=== PATIENT | female | born 1995 | race Caucasian/White ===

== ENCOUNTER 2016-11-25 12:35 | Inpatient (IN) ==
[2016-11-25] MEDS ORDERED: AMBIEN PO PRN (20:24)
[2016-11-25] MEDS ORDERED: KEFZOL 1 GM/D5W 1 GM/50 ML IVPB IV PRN (20:24)
[2016-11-25] MEDS ORDERED: ZOFRAN IV PRN (20:24)
[2016-11-25] MEDS ORDERED: STADOL IV PRN ×3 (20:24)
[2016-11-25] MEDS ORDERED: TYLENOL PO PRN (20:24)
[2016-11-25] MEDS ORDERED: PEPCID IV PRN (20:24)
[2016-11-25] MEDS ORDERED: BRETHINE SUBQ PRN (20:24)
[2016-11-25] MEDS ORDERED: PITOCIN 30 UNITS/LR 30 UNITS/500 ML IV.SOLN IV SCH (20:24)
[2016-11-25] MEDS: LR 1,000 ML IV ONE ×2 (21:45→23:26)
[2016-11-25] MEDS ORDERED: AMPICILLIN 2 GM/NS 2 GM/100 ML IVPB IV ONE (22:00)
[2016-11-25] MEDS ORDERED: CYTOTEC PO ONE (22:00)
[2016-11-25 22:35] LABS: URINE SOURCE VOIDED
[2016-11-25 22:35] LABS: MANUAL DIFF NEEDED? NO
[2016-11-25 22:40] LABS: BASO% 0.2 % (0.0-0.8); EOS# 0.18 X1000 (0.0-0.7); EOS% 1.2 % (0.0-10.0); HEMATOCRIT 37.3 % (37.0-47.0); HEMOGLOBIN 12.9 g/dL (12.0-16.0); IMM GRAN# 0.08 X1000 (0.0-0.04); IMM GRAN% 0.5 % (0.0-0.5); LYMPH# 3.26 X1000 (1.2-3.4); LYMPH% 21.3 % (20.5-51.1); MCH 30.1 PG (27-31); MCHC 34.6 g/dL (33-37); MCV 86.9 FL (81-99); MONO# 0.83 X1000 (0.11-0.59); MONO% 5.4 % (1.7-9.3); MPV 10.6 FL (7.4-10.4); NEUT% 71.4 % (42.2-75.2); PLT 345 X1000 (130-400); RBC 4.29 XMIL (4.2-5.4)
[2016-11-25 22:43] LABS: UR AMPHETAMINES QUAL NONE DETECTED (NONE DETECT); UR BARBITUATES QUAL NONE DETECTED (NONE DETECT); UR BENZODIAZEPIN QUAL NONE DETECTED (NONE DETECT); UR CANNABINOIDS QUAL NONE DETECTED (NONE DETECT); UR COCAINE QUAL NONE DETECTED (NONE DETECT); UR MDMA QUAL NONE DETECTED (NONE DETECT); UR METHADONE QUAL NONE DETECTED (NONE DETECT); UR METHAMPHETAMINE QUAL NONE DETECTED (NONE DETECT); UR OPIATES QUAL NONE DETECTED (NONE DETECT); UR OXYCODONE QUAL NONE DETECTED (NONE DETECT); UR PCP QUAL NONE DETECTED (NONE DETECT); UR TCA QUAL NONE DETECTED (NONE DETECT)
[2016-11-25 22:54] LABS: PROTEIN CREAT RATIO 0.4; UR CREAT RANDOM 144.4 mg/dL (11-20); UR PROT RANDOM 51.1 mg/dL
[2016-11-25 23:08] LABS: BILIRUBIN URINE NEGATIVE (NEGATIVE); BLOOD URINE NEGATIVE (NEGATIVE); CLARITY CLEAR (CLEAR); COLOR YELLOW; GLUCOSE URINE NEGATIVE (NEGATIVE); LEUKOCYTES URINE NEGATIVE (NEGATIVE); NITRITE URINE NEGATIVE (NEGATIVE); PH URINE 6.5; PROTEIN URINE 1+(30 mg/dL) mg/dL (NEGATIVE); UROBILINOGEN URINE NORMAL
[2016-11-25] MEDS ORDERED: FENTANYL-BUPIV-NS 2 MCG-0.1% 200 ML EPIDURAL PRN (23:10)
[2016-11-25] MEDS ORDERED: MARCAINE 0.25% PF INJ PRN (23:11)
[2016-11-25 23:12] LABS: AGAP 16; ALBUMIN 3.4 g/dL (3.5-5.0); ALKALINE PHOSPHATASE 159 U/L (32-104); BUN 8 mg/dL (8-22); CALCIUM 9.5 mg/dL (8.8-10.2); CHLORIDE 102 mmol/L (98-107); COSMO 267; GOT 16 U/L (10-30); GPT 15 U/L (10-36); POTASSIUM 4.1 mmol/L (3.5-5.1); SODIUM 135 mmol/L (136-145); TCO2 17 mmol/L (25-35); TOTAL BILIRUBIN < 0.15 mg/dL (0.20-1.00); TOTAL PROTEIN 6.4 g/dL (6.3-8.3); URIC ACID 5.2 mg/dL (2.4-5.7)
[2016-11-26] MEDS: AMPICILLIN 1 GM/NS 1 GM/50 ML IVPB IV SCH ×5 (02:00→17:51)
[2016-11-26] MEDS ORDERED: CYTOTEC PO SCH (02:00)
[2016-11-26] MEDS: LR 1,000 ML IV ONE (07:25)
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
[2016-11-26] MEDS ORDERED: LR 1,000 ML IV SCH (08:00)
[2016-11-26 11:04] LABS: LDH 153 U/L (135-214)
[2016-11-26] MEDS ORDERED: XYLOCAINE-MPF 1% INJ ONE ×2 (11:55→16:45)
[2016-11-26] MEDS ORDERED: TRANDATE PO ONE (12:58)
[2016-11-26] MEDS ORDERED: MARCAINE 0.25% PF INJ ONE (16:34)
[2016-11-26] MEDS ORDERED: XYLOCAINE 1% INJ ONE (16:36)
[2016-11-26] MEDS ORDERED: MINERAL OIL TOP ONE (16:37)
[2016-11-26] MEDS ORDERED: NAROPIN 0.2% ONE (17:08)
[2016-11-26] MEDS ORDERED: NAROPIN 0.2% EPIDURAL PRN (17:13)
[2016-11-26] MEDS ORDERED: XYLOCAINE-MPF 2% ONE ×2 (17:50→17:51)
[2016-11-26] MEDS ORDERED: XYLOCAINE-MPF 2% INJ ONE (17:53)
[2016-11-26] MEDS ORDERED: BENADRYL IV PRN (19:33)
[2016-11-26] MEDS ORDERED: PITOCIN 20 UNITS/LR 20 UNITS/1,000 ML IV.SOLN IV SCH (19:33)
[2016-11-26] MEDS ORDERED: HYDROXYZINE IM PRN (19:33)
[2016-11-26] MEDS ORDERED: ZANTAC PO PRN (19:33)
[2016-11-26] MEDS ORDERED: PITOCIN 30 UNITS/LR 30 UNITS/500 ML IV.SOLN IV ONE (19:33)
[2016-11-26] MEDS ORDERED: MINERAL OIL PO PRN (19:33)
[2016-11-26] MEDS ORDERED: BENADRYL PO PRN (19:33)
[2016-11-26] MEDS ORDERED: PITOCIN IM PRN (19:33)
[2016-11-26] MEDS ORDERED: XYLOCAINE-MPF 1% INJ PRN (19:33)
[2016-11-26] MEDS ORDERED: CYTOTEC PO PRN (19:33)
[2016-11-26] MEDS ORDERED: HYDROXYZINE PO PRN (19:33)
[2016-11-26] MEDS ORDERED: PERI MEDS (DERMOPLAST/NUPERCAINAL/TUCKS) MISC PRN (19:33)
[2016-11-26] MEDS ORDERED: NORCO-5 PO PRN (19:33)
[2016-11-26] MEDS ORDERED: BOOSTRIX VACCINE IM ONE (19:33)
[2016-11-26] MEDS ORDERED: M-M-R II VACCINE SUBQ ONE (19:33)
[2016-11-26] MEDS ORDERED: AMBIEN PO PRN (19:33)
[2016-11-26] MEDS: MUCINEX PO SCH (20:35)
[2016-11-26] MEDS: PERICOLACE PO SCH (20:35)
[2016-11-27] MEDS: MOTRIN PO PRN (00:49)
[2016-11-27] MEDS: NORCO-10 PO PRN ×3 (00:49→14:03)
--- NOTE | 2016-11-27 02:46 | OPERATIVE NOTE ---
PROCEDURE DATE: 11/26/2016 PREPROCEDURE DIAGNOSES: 1. G1 at 39 weeks and 3 days. 2. Gestational hypertension. POSTPROCEDURE DIAGNOSES: 1. G1, P1, status post spontaneous vaginal delivery. 2. Gestational hypertension. DESCRIPTION OF PROCEDURE: The patient was admitted on the evening of 2016 for scheduled induction of labor. She had been seen in the office earlier that day, and was noted to have elevated blood pressures to 160s over 100s. She was asymptomatic, and was 2 cm dilated. She received 2 doses of Cytotec overnight, and was given ampicillin for GBS prophylaxis. In the morning, she was started on Pitocin for augmentation. She progressed from 4 cm around 7 o'clock in the morning, eventually to complete around 5:45 p.m., and then she pushed and had a controlled vaginal delivery of a female infant in the left OA position, with delivery through nuchal cord x1 that was loose. The baby was then bulb suctioned and placed on mother's abdomen. The cord was clamped and cut. Cord blood was obtained, and then the placenta was then gently massaged from the uterus. The perineum was inspected for lacerations, and she was noted to have a right first- degree labial and small first-degree vaginal that was repaired with 3 interrupted stitches of 2-0 Polysorb, with excellent hemostasis. Fundus was firm after delivery. Estimated blood loss of less than 300 mL. Baby girl was born at 18:48, with Apgars of 9 at one minute, 10 at five minutes. Baby weighed 6 pounds 8 ounces. All sponge, lap, and needle counts were correct. Patient will be monitored in Labor and Delivery for her blood pressures, as she did have some severe range pressures earlier today, requiring 200 mg of p.o. labetalol, but did respond well. However, some of this is felt to be related to pain, so we will monitor her closely. cc: MD ENMANUEL Deal
[2016-11-27 07:08] LABS: HEMATOCRIT 33.2 % (37.0-47.0); HEMOGLOBIN 11.3 g/dL (12.0-16.0); MCV 88.1 FL (81-99); MPV 10.6 FL (7.4-10.4); RBC 3.77 XMIL (4.2-5.4)
[2016-11-27] MEDS: MUCINEX PO SCH ×3 (09:29→21:10)
[2016-11-27] MEDS ORDERED: TRANDATE PO ONE ×2 (11:21→17:00)
--- NOTE | 2016-11-27 11:41 | PROGRESS NOTE ---
DATE: 11/27/2016 SUBJECTIVE: She is day 1. Ms. Parada has no complaints this morning. She is tolerating p.o., ambulated and voided. PHYSICAL EXAMINATION: Vital Signs: Blood pressure is slightly elevated. She is 150s/90s, 140s/80s. Normal pulse, respiration, and temperature. Neck: Supple. Lungs: Clear. Heart: Regular sinus rhythm. Abdomen: Distended. The uterus is firm and nontender. Extremities: There is +2 lower extremity edema. LABORATORY DATA: Hemoglobin and hematocrit of 11 and 33, with platelets of 267,000. Chemistry did not reveal any elevated LFTs. Urine +1 protein. Toxicology screen was negative. RPR nonreactive. PLAN: We will continue current orders. We will add labetalol 200 once a day to see how that impacts her blood pressure. cc: MD Malia Hernandez MD
[2016-11-27] MEDS: PERICOLACE PO SCH (20:40)
[2016-11-28] MEDS: NORCO-10 PO PRN (05:37)
[2016-11-28] MEDS: MOTRIN PO PRN (05:38)
[2016-11-28] MEDS: MUCINEX PO SCH (09:08)
[2016-11-28 09:23] VITALS: BP 155/87
== END 2016-11-28 13:35 | disposition home or self-care (01) ==
LOC: P.LD 20:22 → P.WC 11-26 23:28
PROVIDERS: ADMIT Obstetrics & Gynecology; ATTEND Obstetrics & Gynecology

== ENCOUNTER 2016-12-02 16:38 | Inpatient (IN) ==
[2016-12-02 17:20] LABS: MANUAL DIFF NEEDED? NO
--- NOTE | 2016-12-02 17:23 | PROVIDER DOCUMENTATION ---
This chart was entered by Stephanie Camacho Scribe, acting as scribe for Max Lawson MD. HPI-General Adult - General Chief Complaint: Complaint Stated Complaint: SOB Time Seen by Provider: 12/02/16 16:51 Source: patient Allergies/Adverse Reactions: Patient Allergies Allergy/AdvReac Type Severity Reaction Status Date / Time No Known Allergies Allergy Verified 11/26/16 08:02 Home Medications: Home Medication List Medication Instructions Recorded Confirmed Last Taken Type Hydroxyzine Pamoate [Vistaril] 1 cap PO Q6H PRN PRN 11/25/16 12/02/16 12/01/16 21:00 History 1 TAB Hydrocodone/APAP 5 mg/325 mg 1 each PO Q3-4H PRN PRN #30 tablet 11/28/1612/02/16 16:00 Rx [[place]-5] 1 TAB Ibuprofen [Motrin] 800 mg PO Q8H PRN PRN #30 tablet 11/28/16 12/02/16 12/02/16 16:00 Rx 1 TAB Labetalol [Trandate] 100 mg PO BID #14 tablet 11/28/16 12/02/16 12/02/16 05:00 Rx 1 TAB Azithromycin 250 mg PO DIRECTED 12/02/16 12/02/16 12/02/16 07:00 History 1 TAB - History of Present Illness -Gen Adult Nature of Presenting Problems: 21 yo F presents to the ER with complaint of SOB, swelling, cough, chest tightness and high blood pressure. Pt had a vaginal delivery x7 days ago, states she was not diagnosed with preclamsia but had similar symptoms. Gained a total of 40 pounds during . States she saw Dr. Jimenez yesterday and had similar symptoms, was prescribed a z-pack. Also complains of back pain from where the epidural "slipped out" during delivery. Associated Symptoms: reports: chest pain, cough, shortness of breath. denies: nausea, vomiting Review of Systems - Adult - REVIEW OF SYSTEMS - ADULT Constitutional: denies: chills, fever Eyes: reports: no symptoms reported Ears, Nose, Mouth & Throat: reports: no symptoms reported Cardiovascular: reports: chest pain, edema. denies: palpitations Respiratory: reports: cough, shortness of breath Gastrointestinal: denies: diarrhea, nausea, vomiting Genitourinary: reports: no symptoms reported Musculoskeletal: reports: back pain, joint pain Integumentary: reports: no symptoms reported Neurological: reports: no symptoms reported Psychiatric: reports: no symptoms reported Endocrine: reports: no symptoms reported Hematologic/Lymphatic: reports: no symptoms reported Allergic/Immunologic: reports: no symptoms reported All Other Systems: Reviewed and Negative Past History - Adult - PAST MEDICAL HISTORY-ADULT Review of Records: reports: Nursing Assessment Review, Medications Reviewed Neurological: reports: Seizures/Epilepsy Additional History: Chronic bilat ear infx - PRIOR SURGERIES/PROCEDURES Surgical/Procedure History: reports: none - IMMUNIZATION STATUS Childhood Immunizations: See Nurse Assessment Flu Vaccine: See Nurse Assessment Physical Exam-General - PHYSICAL EXAM-ADULT Initial Vital Signs Reviewed: Yes - CONSTITUTIONAL General Appearance: alert, no apparent distress - EYES Eyes: PERRL/EOMI, pink conjunctivae - HEAD, EARS, NOSE, MOUTH & THROAT HENMT: normocephalic/atraumatic, normal ENT inspection - NECK Neck: supple, normal inspection - RESPIRATORY Respiratory: no respiratory distress, no accessory muscle use - CARDIOVASCULAR Cardiovascular: normal peripheral pulses, regular rate, rhythm - GASTROINTESTINAL (ABDOMEN) Abdominal Exam: normal bowel sounds, non tender, soft - MUSCULOSKELETAL Back Exam: no CVA tenderness, no vertebral tenderness Extremity: normal gait, normal inspection - SKIN Integumentary: normal color, warm/dry, swelling (+2 pitting edema to lower extremities) - NEUROLOGIC Neurologic: grossly normal, no motor/sensory deficits - PSYCHIATRIC Psych/Mental Status: normal mood/affect, normal thought content, normal thought process, oriented x 3 Progress - PLAN OF CARE/RESULTS Progress/Plan/Lab Results: Vital Signs - 8 hr 12/02/16 16:39 Temperature 99.1 F Pulse Rate 91 H Respiratory Rate 22 Blood Pressure 181/107 O2 Sat by Pulse Oximetry 91 L Orders Category Date Time Status CHEST-2 VIEWS [RAD] Stat Exams 12/02/16 16:42 Taken CBC WITH DIFF [HEME] Stat Lab 12/02/16 16:42 Ordered COMPREHENSIVE METABOLIC PANEL [CHEM] Stat Lab 12/02/16 16:42 Ordered PRO B-NATRIURETIC PEPTIDE Stat Lab 12/02/16 16:42 Ordered EKG [EKG] Stat Ther 12/02/16 16:42 Ordered Result Diagrams: 12/02/16 17:07 12/02/16 17:07 - EKG 1 Time of EKG reading by physician:: 17:42 EKG Read and Signed by:: Max Lawson EKG Interpretation (*Must complete 3 of following elements*): Normal Rate: 107 Rhythm: sinus tach [place]: normal QRS: normal AL Interval: normal ST Wave: normal - CONSULTS/PCP/HOSPITALIST Notification #1 *Consult/PCP/Hospitalist*: Admit to Dr. Tavarez - CHANGE OF SHIFT REPORT (ED Provider) Report Given and Care Transferred to:: Dr. Mckeon Time of Transfer: 18:00 Items Pending: Labs, CT/MRI Results, Ultrasound Results, Physician Consult/ Arrival, Other (All labs and image studies are pending.) Departure - Departure Date of Disposition Decision: 12/02/16 Time of Disposition Decision: 19:00 DIAGNOSIS: complication, CHF (congestive heart failure), Hypertension Disposition: ADMITTED INPATIENT 09 Certified Medical Emergency: Emergent Condition: Stable - Critical Care Note This patient required my direct & personal management of CC.: No This chart was documented by the indicated scribe, (Stephanie Camacho Scribe) and accurately reflects the services I performed and decisions made by me, Max Lawson MD, as attested by the provider's signature.
[2016-12-02 17:25] LABS: BASO% 0.1 % (0.0-0.8); EOS# 0.27 X1000 (0.0-0.7); HEMATOCRIT 35.2 % (37.0-47.0); HEMOGLOBIN 11.7 g/dL (12.0-16.0); IMM GRAN# 0.09 X1000 (0.0-0.04); IMM GRAN% 0.7 % (0.0-0.5); LYMPH# 2.16 X1000 (1.2-3.4); LYMPH% 15.7 % (20.5-51.1); MCH 29.8 PG (27-31); MCHC 33.2 g/dL (33-37); MCV 89.6 FL (81-99); MONO# 0.59 X1000 (0.11-0.59); MONO% 4.3 % (1.7-9.3); NEUT% 77.2 % (42.2-75.2); PLT 414 X1000 (130-400); RBC 3.93 XMIL (4.2-5.4)
[2016-12-02] MEDS ORDERED: LABETALOL IV ONE ×2 (17:44→19:02)
[2016-12-02 17:48] LABS: AGAP 16; ALBUMIN 3.4 g/dL (3.5-5.0); ALKALINE PHOSPHATASE 120 U/L (32-104); BUN 10 mg/dL (8-22); CALCIUM 8.6 mg/dL (8.8-10.2); CHLORIDE 100 mmol/L (98-107); COSMO 273; GOT 14 U/L (10-30); GPT 14 U/L (10-36); POTASSIUM 3.7 mmol/L (3.5-5.1); SODIUM 137 mmol/L (136-145); TCO2 21 mmol/L (25-35); TOTAL PROTEIN 6.5 g/dL (6.3-8.3)
--- NOTE | 2016-12-02 17:52 | EKG Report ---
Test Performed on : 12/02/2016 5:48:04 PM Test Reason : sob Blood Pressure : / mmHG Vent. Rate : 107 BPM Atrial Rate : 107 BPM P-R Int : 124 ms QRS Dur : 068 ms QT Int : 344 ms P-R-T Axes : 037 057 054 degrees QTc Int : 459 ms Sinus tachycardia. Otherwise normal ECG No previous ECGs available Unconfirmed Result
[2016-12-02 17:53] LABS: INR 0.9 (0.86-1.15); PROTIME 12.5 Seconds (12.1-15.5)
[2016-12-02 17:54] LABS: PTT PL 30.9 Seconds (22.6-43.9)
[2016-12-02] MEDS ORDERED: PERCOCET-5 PO ONE (18:53)
--- NOTE | 2016-12-02 18:59 | Diag Imaging Result Doc PS360 ---
EXAM: HEAD W/O CONTRAST INDICATION: STAPLES, COMPARISON: 10/02/2013 FINDINGS: There is no definite acute infarct given the limited sensitivity of CT versus MRI. There is no discrete intracranial mass, mass effect, or intracranial hemorrhage. There is subtotal opacification of the visualized portion of the left maxillary sinus that appears to be from a large mucus retention cyst. There is mild left ethmoid sinus mucosal thickening. Surrounding soft tissues and bony structures are grossly unremarkable, otherwise. IMPRESSION: 1.No evidence of acute intracranial pathology. 2.Paranasal sinus mucosal disease. Electronically signed by Jim Martins 12/02/2016 6:56 PM
--- NOTE | 2016-12-02 19:12 | Diag Imaging Result Doc PS360 ---
EXAM: ABD/PELVIS/PULM ARTERIES INDICATION: SOB. Edema, COMPARISON: Abdomen and pelvis CT dated 08/27/2011. No prior CT chest available for comparison. FINDINGS: CTA CHEST: There is excessive motion artifact, which limits sensitivity for detecting small distal pulmonary emboli. However, there is no definite filling defect, at least centrally, to indicate pulmonary embolism. There is no evidence of aortic dissection or aneurysm. The heart appears somewhat prominent. There are bilateral moderate sized pleural effusions. There is interstitial thickening throughout both lungs as well as infiltrates at the lung bases, probably representing pulmonary edema. There may also be a component of pneumonia. ABDOMEN/PELVIS: There is a small right renal hypodensity that probably represents a small cyst. There is a prominent post gravid uterus. There is no significant abdominal fluid collection. There is no free abdominal gas or focal inflammatory change. There is no evidence of bowel obstruction. The remainder of the solid viscera of the abdomen and pelvis and the remainder of the GI tract are essentially unremarkable. IMPRESSION: 1.Somewhat limited study due to respiratory motion artifact. However, no definite pulmonary embolus identified. 2.Interstitial thickening and bibasilar infiltrates most compatible with pulmonary edema +/- pneumonia. 3.Bilateral moderate-sized pleural effusions. 4.Prominent heart. 5.No evidence of acute pathology involving the abdomen or pelvis. Electronically signed by Jim Martins 12/02/2016 7:09 PM
[2016-12-02 19:42] LABS: BILIRUBIN URINE NEGATIVE (NEGATIVE); BLOOD URINE 4+ (NEGATIVE); CLARITY SL. CLOUDY (CLEAR); COLOR AMBER; GLUCOSE URINE NEGATIVE (NEGATIVE); LEUKOCYTES URINE 2+ (NEGATIVE); NITRITE URINE NEGATIVE (NEGATIVE); PROTEIN URINE 1+(30 mg/dL) mg/dL (NEGATIVE); UROBILINOGEN URINE 1+(1 mg/dL)
[2016-12-02 19:50] LABS: UR AMPHETAMINES QUAL NONE DETECTED (NONE DETECT); UR BARBITUATES QUAL NONE DETECTED (NONE DETECT); UR BENZODIAZEPIN QUAL NONE DETECTED (NONE DETECT); UR CANNABINOIDS QUAL NONE DETECTED (NONE DETECT); UR COCAINE QUAL NONE DETECTED (NONE DETECT); UR MDMA QUAL NONE DETECTED (NONE DETECT); UR METHADONE QUAL NONE DETECTED (NONE DETECT); UR METHAMPHETAMINE QUAL NONE DETECTED (NONE DETECT); UR OPIATES QUAL PRESUMPTIVE POSITIVE (NONE DETECT); UR OXYCODONE QUAL NONE DETECTED (NONE DETECT); UR PCP QUAL NONE DETECTED (NONE DETECT); UR TCA QUAL NONE DETECTED (NONE DETECT)
[2016-12-02] MEDS ORDERED: LASIX IV ONE (20:04)
[2016-12-02 20:06] LABS: URINE CULTURE PL NEEDED? YES; URINE EPITHELIAL CELLS <10 /HPF (<10); URINE RBC 20-40 /HPF (<10); URINE SOURCE CLEAN CATCH
[2016-12-02] MEDS ORDERED: ZOFRAN PO PRN (20:06)
[2016-12-02] MEDS ORDERED: NS 1,000 ML IV ONE (20:06)
[2016-12-02] MEDS ORDERED: TYLENOL PO PRN ×2 (20:06→21:18)
[2016-12-02] MEDS ORDERED: PERCOCET-5 PO PRN (20:12)
[2016-12-02] MEDS ORDERED: APRESOLINE IV SCH (20:15)
[2016-12-02] MEDS ORDERED: SODIUM CHLORIDE 0.9% INJ SCH (21:18)
[2016-12-02] MEDS ORDERED: ZOFRAN IV PRN (21:18)
[2016-12-02] MEDS ORDERED: ATIVAN PO PRN (21:18)
[2016-12-02] MEDS ORDERED: HYDROXYZINE PO PRN (21:18)
[2016-12-02] MEDS ORDERED: NS 1,000 ML ONE (22:18)
[2016-12-02] MEDS: LASIX IV SCH (22:21)
[2016-12-02] MEDS: TRANDATE PO SCH (22:24)
[2016-12-02] MEDS: PROTONIX IV SCH (22:24)
[2016-12-02] MEDS: PRINIVIL PO SCH (22:24)
[2016-12-02] MEDS: APRESOLINE PO SCH (22:25)
[2016-12-02] MEDS: ROCEPHIN 1 GM/NS 1 GM/50 ML IVPB IV SCH (22:25)
--- NOTE | 2016-12-03 02:53 | HISTORY AND PHYSICAL ---
HISTORY: Anna is a 21-year-old white female now 1, para 1, who had uncomplicated vaginal delivery on November 26. Presented to emergency room this evening with complaints of shortness of breath. Patient had uncomplicated vaginal delivery but had mildly elevated blood pressures in the period and was given labetalol which she was discharged on as medication. This evening the patient states her shortness of breath became acutely worsened. When the patient presented to the emergency room, the patient's blood pressures were noted to be in the 160s, 180s with diastolics in the 100s. Chest x-ray was performed where concerns for possible cardiomegaly were entertained as well as pulmonary edema. Lab work did reveal an elevated D-dimer, however, this was difficult to interpret since the patient is in the period. The patient had a CT angiogram of the chest which did show basilar infiltrates consistent with pulmonary edema and prominent heart size. PAST MEDICAL AND SURGICAL HISTORY: The patient does not have any significant past medical or surgical history. SOCIAL HISTORY: The patient is a smoker. PLAN: Patient is admitted to intensive care service under the care of Dr. Tavarez who has most graciously admitted the patient for further workup including evaluation for possible cardiomyopathy. The patient also has a Doppler of the lower extremities ordered for evaluation of deep venous thrombosis. The patient will be aggressively diuresed as well as given antihypertensives. We will follow the patient with Dr. Tavarez. cc: Zach Nash MD
[2016-12-03 07:19] LABS: AGAP 16; BUN 10 mg/dL (8-22); CALCIUM 8.5 mg/dL (8.8-10.2); CHLORIDE 102 mmol/L (98-107); COSMO 276; POTASSIUM 3.8 mmol/L (3.5-5.1); SODIUM 139 mmol/L (136-145); TCO2 22 mmol/L (25-35)
--- NOTE | 2016-12-03 08:00 | Diag Imaging Result Doc PS360 ---
CHEST-2 VIEWS - 12/02/2016 INDICATION: sob TECHNIQUE: COMPARISON: 01/17/2015 FINDINGS: There are new significant bilateral basilar infiltrates. These are heterogeneous in appearance. The size of the heart shadow has increased since the prior exam. No pneumothorax or significant effusion. Pulmonary vascularity is somewhat distended. IMPRESSION: New cardiomegaly. Mild pulmonary vascular congestion. Indeterminate bibasilar infiltrates. Electronically signed by Austin Ponce 12/03/2016 7:57 AM
[2016-12-03] MEDS: LASIX IV SCH ×2 (09:46→21:00)
[2016-12-03] MEDS: PRINIVIL PO SCH ×2 (09:46→21:00)
[2016-12-03] MEDS: TRANDATE PO SCH ×2 (09:47→21:00)
[2016-12-03] MEDS: APRESOLINE PO SCH ×3 (09:47→17:55)
[2016-12-03] MEDS: ZITHROMAX PO SCH (09:47)
--- NOTE | 2016-12-03 12:47 | Extremity Venous Study ---
EXAM: Venous U/S Bilateral Legs HISTORY: B/l leg edema, SOB, TECHNIQUE: Compression of venous study of both lower extremities with color Doppler COMMENT: There is no evidence of obstruction to color Doppler flow and the deep veins of both lower extremities are compressible. No abnormal fluid collections are present. IMPRESSION: No evidence of deep venous thrombosis. Electronically signed by Fredis Ortega 12/03/2016 12:45 PM
[2016-12-03] MEDS ORDERED: NORCO-5 PO PRN (13:32)
[2016-12-03] MEDS ORDERED: MOTRIN PO PRN (13:32)
--- NOTE | 2016-12-03 14:16 | CONSULTATION ---
DATE OF CONSULTATION: 12/03/2016 PRIMARY CARE PHYSICIAN: JERRY Cavanaugh. She was admitted to [facility] initially. CHIEF COMPLAINT: Shortness of breath, increased swelling, cough, chest tightness and an elevated blood pressure. HISTORY OF PRESENTING ILLNESS: This is a 21-year-old female, who had a vaginal delivery 7 days ago without any complications. Since that time, she has noticed increased shortness of breath, swelling to her bilateral lower extremities, cough, chest tightness and an increase in her blood pressure. She saw Dr. Jimenez from [facility] on Thursday and given a Z-CECILIA. Her symptoms did not improve, so she presented to the emergency room. On arrival, she was noted to have a blood pressure of 181/107. She was satting 91% on room air. LABORATORY DATA/RADIOLOGIC DATA: Showed a white blood cell count of 13.75, a D-dimer of 0.90. ProBNP was 985. Urinalysis showed 2+ white blood cells, 1+ bacteria and 4+ blood. She had a chest x-ray that showed new cardiomegaly, mild pulmonary vascular congestion and intermittent bibasilar infiltrates. A CT of the chest showed no evidence of a pulmonary emboli. Interstitial thickening and bibasilar infiltrates most compatible with pulmonary edema plus or minus pneumonia. Bilateral moderate-sized pleural effusions and a prominent heart. No evidence of acute pathology involving the abdomen or pelvis. She was admitted to the intensive care unit for further evaluation and treatment. PAST MEDICAL HISTORY: Seizure, anxiety. PAST SURGICAL HISTORY: None. FAMILY HISTORY: Noncontributory. SOCIAL HISTORY: She currently lives with family. Smokes cigarettes daily. Denied any alcohol or illicit drug use. ALLERGIES: She has no known drug allergies. HOME MEDICATIONS: 1. She was taking azithromycin as directed; that will be held. 2. [place] 5 one p.o. q 3-4 hours p.r.n. will be continued. 3. Motrin 800 mg p.o. q. 8 hours p.r.n. 4. Vistaril 25 mg 1 p.o. q. 6 hours p.r.n. 5. Labetalol 100 mg p.o. b.i.d. LABORATORY DATA: Showed a white blood cell count of 13.75, a hemoglobin of 11.7, hematocrit 35.2, platelets 414. PT and INR of 12.5 and 0.90 with a D-dimer of 0.90. Sodium 137, potassium 3.7, chloride 100, CO2 21, BUN of 10, creatinine 0.5, glucose 103, magnesium 1.7. Troponin less than 0.010. ProBNP of 985. Urinalysis with negative nitrites, 4+ blood, 2+ white blood cells, 1+ bacteria. Urine drug screen was presumptive positive for opiates. IMAGING: Chest x-ray showed a new cardiomegaly, mild pulmonary vascular congestion, and indeterminate bibasilar infiltrates. CT of the chest showed no definite pulmonary emboli identified, interstitial thickening and bibasilar infiltrates most compatible with pulmonary edema plus or minus a pneumonia. Bilateral moderate-sized pleural effusions and a prominent heart. No evidence of acute pathology involving the abdomen or pelvis on her CT. Head CT showed no evidence of an acute intracranial pathology. Bilateral lower extremity venous Doppler showed no evidence of a DVT. REVIEW OF SYSTEMS: She was positive for shortness of breath, bilateral lower extremity edema, cough, chest tightness and an elevated blood pressure. Otherwise, negative review of systems. PHYSICAL EXAMINATION: Vital Signs: She had a temperature of 99.1 degrees, pulse 91, respirations 22, blood pressure 181/107, satting 91% on arrival. General: This is a 21-year-old, female, lying in the bed, answers questions appropriately. HEENT: Normocephalic and atraumatic. The pupils are equal, round, and reactive to light. The extraocular movements are intact. The oropharynx and nares are clear. Neck: Supple. Lungs: Clear to auscultation bilaterally with equal lung expansion and chest wall movement. Heart: With regular rate and rhythm. No murmurs, rubs, or gallops. Abdomen: Soft, nontender, nondistended. Bowel sounds are present x4 quadrants. Extremities: She had no clubbing, cyanosis. She was noted to have 2+ pitting edema to bilateral lower extremities. Neurological: The cranial nerves 2-12 are grossly intact. ASSESSMENT: 1. An acute pulmonary edema. 2. An acute respiratory failure. 3. Elevated D-dimer. 4. Accelerated hypertension. PLAN: She was admitted to the intensive care unit. Placed on a healthy heart diet. We are obtaining a urine culture. Continue her Zithromax 250 mg p.o. daily, Lasix 40 mg IV q. 12 hours. Placed on hydralazine 25 mg p.o. t.i.d. Continue her labetalol 100 mg p.o. b.i.d. Start lisinopril 10 mg p.o. b.i.d., Protonix 40 mg IV q. 12 hours, Rocephin 1 gram IV q. 24 hours, and recheck labs in the a.m. It is also noted that we are going to obtain an echocardiogram on this patient also. Dictated by JERRY Irizarry for Ventura Tavarez MD cc: JERRY Irizarry MD Anna M. Dumas, CRNP
--- NOTE | 2016-12-03 16:33 | ECHO REPORT ---
ORDER DATE: 12/03/2016 ECHOCARDIOGRAPHIC MEASUREMENTS: 1. Interventricular septum 1.3, left ventricular posterior wall 1.1, diastolic diameter 5.9, left atrium 4.3, aorta 2.6. 2. Aortic valve leaflets are trileaflet. Mitral valve was normal. Tricuspid valve was normal. Pulmonic valve was normal. 3. There is mild to moderate eccentric mitral regurgitation. 4. There is no aortic stenosis. There is mild aortic regurgitation. 5. There is mild tricuspid regurgitation. Peak velocity across the tricuspid valve was 3.4 m/sec. Pulmonary artery systolic pressure 57 mmHg. 6. Trace pulmonary regurgitation. 7. Left ventricular cavity size was upper limit of normal. Estimated ejection fraction of 45%. There is mild global hypokinesis. I would recommend MUGA scan for accurately assessing systolic function. 8. There is no pericardial effusion or obvious intracardiac mass or thrombus seen. cc: Mal Rockwell MD
[2016-12-03] MEDS: ROCEPHIN 1 GM/NS 1 GM/50 ML IVPB IV SCH (21:00)
[2016-12-03] MEDS: PROTONIX IV SCH (21:00)
[2016-12-04 06:18] LABS: MANUAL DIFF NEEDED? NO
[2016-12-04 06:40] LABS: BASO% 0.1 % (0.0-0.8); HEMATOCRIT 34.5 % (37.0-47.0); HEMOGLOBIN 11.4 g/dL (12.0-16.0); IMM GRAN# 0.04 X1000 (0.0-0.04); IMM GRAN% 0.4 % (0.0-0.5); LYMPH# 2.36 X1000 (1.2-3.4); LYMPH% 23.9 % (20.5-51.1); MCH 29.5 PG (27-31); MCV 89.4 FL (81-99); MONO# 0.72 X1000 (0.11-0.59); MONO% 7.3 % (1.7-9.3); MPV 9.5 FL (7.4-10.4); NEUT% 64.3 % (42.2-75.2); PLT 431 X1000 (130-400); RBC 3.86 XMIL (4.2-5.4)
[2016-12-04] MEDS ORDERED: HYDROXYZINE PO PRN (06:41)
[2016-12-04] MEDS ORDERED: ZOFRAN ODT PO PRN (06:42)
[2016-12-04 06:55] LABS: AGAP 15; BUN 13 mg/dL (8-22); CALCIUM 8.3 mg/dL (8.8-10.2); CHLORIDE 99 mmol/L (98-107); COSMO 273; POTASSIUM 3.4 mmol/L (3.5-5.1); SODIUM 137 mmol/L (136-145); TCO2 24 mmol/L (25-35)
[2016-12-04] MEDS: ZITHROMAX PO SCH (09:10)
[2016-12-04] MEDS: APRESOLINE PO SCH ×3 (09:11→16:47)
[2016-12-04] MEDS: TRANDATE PO SCH (09:11)
[2016-12-04] MEDS: PRINIVIL PO SCH ×2 (09:11→21:59)
[2016-12-04] MEDS: LASIX PO SCH ×2 (09:11→21:58)
--- NOTE | 2016-12-04 14:06 | CONSULTATION ---
DATE OF CONSULTATION: 12/04/2016 INDICATION: Peripartum cardiomyopathy. HISTORY OF PRESENT ILLNESS: Ms. Parada is a 21-year-old white female with no past medical history who had delivery on -. She re-presented to the hospital within a few days with complaints of shortness of breath as well as increasing cough. Apparently, there were no real issues with her . She did have some issues with high blood pressure but apparently no preeclampsia. Since admission, she has been adjusted on medications and has had some diuresis. PAST MEDICAL HISTORY: Significant for seizure disorder and anxiety. SOCIAL HISTORY: Currently lives with family. Smokes cigarettes daily. No alcohol or illicit drugs. REVIEW OF SYSTEMS: Ten system review of systems is negative except for those things mentioned in HPI. FAMILY HISTORY: Significant for hypertension. PHYSICAL EXAMINATION: Vital Signs: She is afebrile. Heart rate is in the 80s. Blood pressures have been in the 140s-160s systolic. Her I's and O's appear to be negative around 2.3 L. General: She is in no acute distress. HEENT: Oropharynx is moist. Normal dentition. Eye examination is pink conjunctivae. White sclerae. Neck: Examination shows no obvious thyromegaly or thyroid tenderness. Cardiovascular: She is in a regular rate and rhythm. She has no obvious murmurs. She has no S3. She has no S4. She has trace to 1+ bilateral lower extremity edema. Chest: Clear bilaterally. No increased work of breathing. Abdomen: Soft, nontender, nondistended. She has no obvious organomegaly. Skin Exam: Warm and dry throughout. PERTINENT DATA: She had an EKG on 12/02/2016 that demonstrates sinus tachycardia, rate of 107 beats per minute. She had an echocardiogram demonstrating an EF of around 45%. This was a somewhat difficult study. Would consider MUGA scan for further evaluation. LABORATORY DATA: Reviewed. White count 9.8, hematocrit 34.5, platelet count 431,000. Sodium 137, potassium 3.4. BUN 13, creatinine 0.6. Her proBNP on presentation was 985. ASSESSMENT: 1. Peripartum cardiomyopathy. 2. Hypertension. 3. Tobacco abuse. PLAN: We will continue on current dose of Lasix. I will increase lisinopril to 20 mg b.i.d. We will plan on checking a BMP and a BNP in the morning. I would recommend followup with Cardiology as an outpatient and would likely pursue a MUGA scan for better delineation of the ejection fraction. cc: Aniket Coburn MD
--- NOTE | 2016-12-04 18:40 | PROGRESS NOTE ---
DATE: 12/03/2016 SUBJECTIVE: The patient notes that she is feeling better this morning. She denies any chest pains or palpitations. Denies any fevers or chills. Denies any dysuria or urinary frequency. OBJECTIVE: Vital signs: Temperature 98 degrees, pulse 75, respiratory 27, BP 158/92, saturation 95% on room air. General: Patient is awake, alert, oriented. She is in no respiratory distress. Pleasant to talk with. Speech is regular. Memory is intact. HEENT: Normocephalic, atraumatic. ROGELIO. Neck: Supple. CV: Regular rate. Chest: Relatively clear. Abdomen: Soft. Extremities: Moves all extremities. Neurologic: No focal changes. Skin: Warm and dry. No rashes. LABS: Currently pending. ASSESSMENT: 1. Acute pulmonary edema. 2. Acute respiratory failure, improved. 3. Elevated D-dimer secondary to recent . 4. Accelerated hypertension, improved. PLAN: We will continue IV Lasix today. Will hopefully wean down. We will check an echocardiogram. We will follow her blood pressures. Further orders as needed. cc: Ventura Tavarez MD
--- NOTE | 2016-12-04 18:45 | PROGRESS NOTE ---
DATE: 12/04/2016 SUBJECTIVE: Patient is feeling tremendously better. She is asking if she can go home soon. Denies any chest pain, palpitations. Denies any fevers or chills. PHYSICAL: Vital Signs: Temperature 97, pulse 98, respiratory rate 20, BP 152/76. Saturation 96% on room air. General: Patient is awake, alert. She is in no respiratory distress. Pleasant to talk with. Neck: Supple. CV: Regular rate. Chest: Clear. Abdomen: Soft. Extremities: Moves all extremities. Neurologic: No changes. DIAGNOSTIC STUDIES: Echo demonstrates cardiomyopathy with an EF of 45% and mild global hypokinesis. ASSESSMENT: 1. cardiomyopathy. 2. Hypertension. 3. Chronic tobacco abuse. PLAN: We will continue 40 Lasix b.i.d. p.o. We will continue hydralazine 25 t.i.d. She is on lisinopril. Will increase the dose if her blood pressures do not improve. Hopefully, home in the next 1-2 days. We will check labs in the a.m. before discharge. cc: Ventura Tavarez MD
[2016-12-04] MEDS: ROCEPHIN 1 GM/NS 1 GM/50 ML IVPB IV SCH (21:58)
[2016-12-04] MEDS: COREG PO SCH (21:59)
[2016-12-04] MEDS: NICODERM PATCH TD SCH (21:59)
[2016-12-05 08:19] LABS: AGAP 16; BUN 14 mg/dL (8-22); CALCIUM 8.8 mg/dL (8.8-10.2); CHLORIDE 101 mmol/L (98-107); COSMO 277; POTASSIUM 4.1 mmol/L (3.5-5.1); SODIUM 139 mmol/L (136-145); TCO2 22 mmol/L (25-35)
[2016-12-05] MEDS: NICODERM PATCH TD SCH (09:12)
[2016-12-05] MEDS: APRESOLINE PO SCH ×2 (09:12→14:13)
[2016-12-05] MEDS: COREG PO SCH (09:12)
[2016-12-05] MEDS: PRINIVIL PO SCH (09:12)
[2016-12-05] MEDS: LASIX PO SCH (09:12)
[2016-12-05] MEDS: ZITHROMAX PO SCH (09:12)
[2016-12-05 11:38] VITALS: BP 139/91
--- NOTE | 2016-12-05 14:33 | DISCHARGE SUMMARY ---
ADMISSION DATE: 12/02/2016 DISCHARGE DATE: 12/05/2016 PRIMARY CARE PHYSICIAN: JERRY Sherman ADMISSION DIAGNOSES: 1. Acute pulmonary edema. 2. Acute respiratory failure. 3. Elevated D-dimer. 4. Accelerated hypertension. DISCHARGE DIAGNOSES: 1. cardiomyopathy. 2. Pulmonary edema resolved. 3. Acute respiratory failure resolved. 4. Elevated D-dimer ruled out for pulmonary embolus or deep venous thrombosis. 5. Accelerated hypertension improved. SUMMARY OF FINDINGS: This is a 21-year-old female who had a vaginal delivery 7 days prior to this admission and since that time has had increased shortness of breath, swelling to her bilateral lower extremities, cough, chest tightness and an increased blood pressure. This past Thursday she was seen by Dr. Jimenez, [employer], who gave her a Z-Haim. Her symptoms did not improve so she presented to the emergency room. Her blood pressure was noted to be 181/107, was saturating 91% on room air. She had a D-dimer of 0.[address] showed no evidence of a pulmonary emboli. A bilateral lower extremity ultrasound showed no DVT. She was found on her chest x-ray to have new cardiomegaly, mild pulmonary vascular congestion and intermittent bibasilar infiltrates compatible with a pulmonary edema plus or minus pneumonia. Bilateral moderate size pleural effusions and a prominent heart. We obtained an echocardiogram that showed an estimated ejection fraction of 45% with the left ventricular cavity size upper limit of normal. We consulted Cardiology. She was diuresed. We increased her lisinopril to 20 mg b.i.d. He recommended once she was discharged they would pursue a MUGA scan outpatient for a better delineation of her ejection fraction. She has been saturating 98% on room air and has a blood pressure of 139/91 this a.m., so it is felt that she can safely be discharged home. DISCHARGE MEDICATION: She will have a prescription for Lasix 40 mg take 1/2 tablet b.i.d. unless swelling increases. A nicotine patch 21 mg transdermally daily, Coreg 3.125 mg p.o. b.i.d. #60 with 1 refill and lisinopril 20 mg p.o. b.i.d. #60 with 1 refill. She will continue her ibuprofen 800 mg p.o. q.8 hours p.r.n. FOLLOWUP: She can follow up with her primary care physician in 1-2 weeks. She will follow up with Cardiology on either Thursday or Thursday. Call their office for an appointment and then they will also schedule her for MUGA scan outpatient, during that visit. DISCHARGE INSTRUCTIONS: All discharge instructions have been reviewed with the patient and she verbalizes understanding. TIME SPENT: Thirty-five minutes. Dictated by JERRY Irizarry for Ventura Tavarez MD cc: JERRY Irizarry MD Anna M. Dumas, CRNP Peter Johnson, MD
== END 2016-12-05 15:58 | disposition home or self-care (01) ==
LOC: P.ED 16:38 → P.ICU 20:21 → P.MEDSURG 12-04 14:00
PROVIDERS: ATTEND Family Medicine